=== PATIENT | male | born 1950 ===

== ENCOUNTER → 2016-10-01 | Outpatient (CLI) | payer OTHER, MEDICARE | LOC: BHLMT 09:30 | PROVIDERS: ATTEND Internal Medicine Interventional Cardiology | DX: I73.9 Peripheral vascular disease, unspecified (principal); R60.9 Edema, unspecified | CPT/HCPCS: 93005-PO ==

== ENCOUNTER → 2016-10-31 | Outpatient (CLI) | payer OTHER, MEDICARE | LOC: BHFA 14:00 | PROVIDERS: ATTEND Internal Medicine Cardiovascular Disease | DX: I25.10 Atherosclerotic heart disease of native coronary artery without angina pectoris (principal) ==